=== PATIENT | male | born 1975 | race Caucasian/White ===

== ENCOUNTER 2023-06-04 16:47 | Emergency (ER) | payer OTHER, SELFPAY ==
--- NOTE | 2023-06-04 17:33 | ER ---
Nurse's Notes [facility] Name: Dedrick Gutierrez Jr Age: 48 yrs Sex: Male : 1975 Arrival Date: 06/04/2023 Time: 16:47 Bed 14 Private MD: Diagnosis: Elevated blood-pressure reading, without diagnosis of hypertension Presentation: 06/04 17:00 Chief complaint: High BP reading at [facility] today. Denies CP/SOB/GRIFFIN. Coronavirus screen: At this time, the client does not indicate any symptoms associated with coronavirus-19. Ebola Screen: No symptoms or risks identified at this time. Initial Sepsis Screen: Does the patient meet any 2 criteria? No. Patient's initial sepsis screen is negative. Does the patient have a suspected source of infection? No. Patient's initial sepsis screen is negative. Risk Assessment: Do you want to hurt yourself or someone else? Patient reports no desire to harm self or others. Onset of symptoms was June 04, 2023. 17:00 Method Of Arrival: Ambulatory 17:00 Acuity: DEX 3 hb Historical: - Allergies: 17:01 No Known Allergies; hb - Home Meds: 17:01 None [Active]; hb - PMHx: 17:01 Kidney Stones; hb - PSHx: 17:01 None; hb - Immunization history:: Adult Immunizations up to date. - Social history:: Smoking status: Patient reports the use of cigarette tobacco products, smokes one-half pack cigarettes per day. Screenin:59 [facility] ED Fall Risk Assessment (Adult) History of falling in the last 3 months, kc6 including since admission No falls in past 3 months (0 pts) Confusion or Disorientation No (0 pts) Intoxicated or Sedated No (0 pts) Impaired Gait No (0 pts) Mobility Assist Device Used No (0 pt) Altered Elimination No (0 pt) Score/Fall Risk Level 0 - 2 = Low Risk Oriented to surroundings, Maintained a safe environment, Educated pt \T\ family on fall prevention, incl call for assistance when getting out of bed, Assessed \T\ reinforced patient's understanding of fall precautions, Hourly rounding (assess needs \T\ fall precautionary measures) done. Abuse screen: Denies threats or abuse. Denies injuries from another. Nutritional screening: No deficits noted. Tuberculosis screening: No symptoms or risk factors identified. Assessment: 17:04 General: Appears in no apparent distress. comfortable, Behavior is calm, cooperative, kc6 appropriate for age. Pain: Denies pain. Neuro: Tobin Agitation-Sedation Scale (RASS): 0 - Alert and Calm Level of Consciousness is awake, alert, obeys commands, Oriented to person, place, time, situation, Appropriate for age. Cardiovascular: Denies chest pain, shortness of breath, Capillary refill < 3 seconds. Respiratory: Airway is patent Trachea midline Respiratory effort is even, unlabored, Respiratory pattern is regular, symmetrical. GI: No signs and/or symptoms were reported involving the gastrointestinal system. : No signs and/or symptoms were reported regarding the genitourinary system. EENT: No signs and/or symptoms were reported regarding the EENT system. Derm: No signs and/or symptoms reported regarding the dermatologic system. Skin is intact, is healthy with good turgor, Skin is pink, warm \T\ dry. Musculoskeletal: No signs and/or symptoms reported regarding the musculoskeletal system. Circulation, motion, and sensation intact. Capillary refill < 3 seconds, Range of motion: intact in all extremities. 18:00 Reassessment: Patient appears in no apparent distress at this time. No changes from kc6 previously documented assessment. Patient and/or family updated on plan of care and expected duration. Pain level reassessed. Patient is alert, oriented x 3, equal unlabored respirations, skin warm/dry/pink. Vital Signs: 17:00 BP 178 / 10; Pulse 88; Resp 16; Temp 98.2(O); Pulse Ox 100% on R/A; Weight 99.79 kg; hb Height 5 ft. 11 in. ; Pain 0/10; 17:07 BP 152 / 96; Pulse 85; Resp 17 S; Pulse Ox 97% on R/A; Pain 0/10; kc6 18:01 BP 150 / 95; Pulse 75; Resp 17 S; Pulse Ox 93% on R/A; Pain 0/10; kc6 17:00 Body Mass Index 30.68 (99.79 kg, 180.34 cm) hb 17:00 Pain Scale: Adult hb 17:07 Pain Scale: Adult kc6 18:01 Pain Scale: Adult kc6 ED Course: 16:50 Patient arrived in ED. ts1 16:55 Jeferson Estrada PA is PHCP. cp 16:55 Jeferson Hemphill MD is Attending Physician. cp 16:59 Britni Reed, RN is Primary Nurse. kc6 16:59 Patient has correct armband on for positive identification. Bed in low position. Call kc6 light in reach. Side rails up X 1. Adult w/ patient. 17:01 Triage completed. hb 17:01 Arm band placed on. hb 18:00 No provider procedures requiring assistance completed. Patient did not have IV access kc6 during this emergency room visit. Administered Medications: No medications were administered Medication: 18:01 VIS not applicable for this client. kc6 Outcome: 17:33 Discharge ordered by MD. cp 18:00 Discharged to home ambulatory, with significant other. kc6 18:00 Condition: improved 18:00 Discharge instructions given to patient, Instructed on discharge instructions, follow up and referral plans. Demonstrated understanding of instructions, follow-up care. 18:01 Patient left the ED. kc6 Signatures: Jeferson Estrada PA PA Alyx Adair RN RN Britni Reed RN RN kc6 Michelle Barroso PAS PAS ts1 Corrections: (The following items were deleted from the chart) 17:08 17:07 BP 152 / 96; kc6 kc6
--- NOTE | 2023-06-04 17:33 | EDPHYS ---
Physician Documentation [facility] Name: Dedrick Gutierrez Jr Age: 48 yrs Sex: Male : 1975 Arrival Date: 06/04/2023 Time: 16:47 Bed 14 Private MD: ED Physician Jeferson Hemphill HPI: 06/04 17:17 This 48 yrs old Male presents to ER via Ambulatory with complaints of High Blood cp Pressure. 17:17 The patient has elevated blood pressure and discovered this at a drugstore. Onset: The cp symptoms/episode began/occurred gradually. Associated signs and symptoms: Pertinent negatives: chest pain, dizziness, headache, lightheadedness, vomiting, weakness. Severity of symptoms: At its worst the blood pressure was 170 mm Hg, in the emergency department the blood pressure is improved, 152 mm Hg. 17:17 Patient denies history of HTN. cp Historical: - Allergies: 17:01 No Known Allergies; hb - Home Meds: 17:01 None [Active]; hb - PMHx: 17:01 Kidney Stones; hb - PSHx: 17:01 None; hb - Immunization history:: Adult Immunizations up to date. - Social history:: Smoking status: Patient reports the use of cigarette tobacco products, smokes one-half pack cigarettes per day. ROS: 17:19 Constitutional: Negative for body aches, chills, fever, poor PO intake. cp 17:19 Cardiovascular: Negative for chest pain, edema, palpitations. 17:19 Respiratory: Negative for cough, shortness of breath, wheezing. 17:19 Eyes: Negative for injury, pain, redness, and discharge. cp 17:19 ENT: Negative for drainage from ear(s), ear pain, sore throat, difficulty swallowing, difficulty handling secretions. 17:19 Abdomen/GI: Negative for abdominal pain, nausea, vomiting, and diarrhea. 17:19 Neuro: Negative for altered mental status, dizziness, headache, weakness. 17:19 All other systems are negative. cp Exam: 17:20 Constitutional: The patient appears in no acute distress, alert, awake, cp non-diaphoretic, non-toxic, well developed, well nourished. 17:20 Head/Face: Normocephalic, atraumatic. cp 17:20 Eyes: Periorbital structures: appear normal, Conjunctiva: normal, no exudate, no injection, Sclera: no appreciated abnormality, Lids and lashes: appear normal, bilaterally. 17:20 ENT: External ear(s): are unremarkable, Nose: is normal, Mouth: Lips: moist, Oral mucosa: pink and intact, moist, Posterior pharynx: is normal, airway is patent, no erythema, no exudate. 17:20 Chest/axilla: Inspection: normal. 17:20 Cardiovascular: Rate: normal, Rhythm: regular, Edema: is not appreciated, JVD: is not appreciated. 17:20 Respiratory: the patient does not display signs of respiratory distress, Respirations: normal, no use of accessory muscles, no retractions, labored breathing, is not present, Breath sounds: are clear throughout, no decreased breath sounds, no stridor, no wheezing. 17:20 Abdomen/GI: Exam negative for discomfort, distension, guarding, Inspection: abdomen appears normal. 17:20 Back: pain, is absent, ROM is normal. 17:20 Neuro: Orientation: to person, place \T\ time. Mentation: is normal, Motor: moves all fours, strength is normal. 17:35 ECG was reviewed by the Attending Physician. cp Vital Signs: 17:00 BP 178 / 10; Pulse 88; Resp 16; Temp 98.2(O); Pulse Ox 100% on R/A; Weight 99.79 kg; hb Height 5 ft. 11 in. ; Pain 0/10; 17:07 BP 152 / 96; Pulse 85; Resp 17 S; Pulse Ox 97% on R/A; Pain 0/10; kc6 18:01 BP 150 / 95; Pulse 75; Resp 17 S; Pulse Ox 93% on R/A; Pain 0/10; kc6 17:00 Body Mass Index 30.68 (99.79 kg, 180.34 cm) hb 17:00 Pain Scale: Adult hb 17:07 Pain Scale: Adult kc6 18:01 Pain Scale: Adult kc6 MDM: 16:58 Patient medically screened. cp 17:20 Differential diagnosis: hypertensive crisis, Malignant HTN, CVA, intracerebral cp hemorrhage, acute NH. 17:33 Data reviewed: vital signs, nurses notes, EKG. cp 17:33 Consideration of Admission/Observation Escalation of care including cp admission/observation considered. Counseling: I had a detailed discussion with the patient and/or guardian regarding: the historical points, exam findings, and any diagnostic results supporting the discharge/admit diagnosis, the presence of at least one elevated blood pressure reading (>120/80) during this emergency department visit, the need for outpatient follow up, for definitive care, a family practitioner, to return to the emergency department if symptoms worsen or persist or if there are any questions or concerns that arise at home. 06/04 17:17 Order name: EKG; Complete Time: 17:18 cp 06/04 17:17 Order name: EKG - Nurse/Tech; Complete Time: 17:29 cp EC:35 Rate is 79 beats/min. Rhythm is regular. RI interval is normal. QRS interval is cp prolonged at 102 msec. QT interval is normal. T waves are Inverted in lead aVR. Interpreted by me. Reviewed by me. Administered Medications: No medications were administered Disposition Summary: 06/04/23 17:33 Discharge Ordered Location: Home cp Problem: new cp Symptoms: have improved cp Condition: Stable cp Diagnosis - Elevated blood-pressure reading, without diagnosis of hypertension cp Followup: cp - With: Private Physician - When: 2 - 3 days - Reason: Recheck today's complaints Discharge Instructions: - Discharge Summary Sheet cp - How to Take Your Blood Pressure, [id number] cp - Aspirin and Your Heart cp - DASH Eating Plan cp - Form - Blood Pressure Record Sheet cp Forms: - Medication Reconciliation Form cp - Thank You Letter cp - Antibiotic Education cp - Prescription Opioid Use cp - [email or web address] cp Signatures: Jeferson Estrada PA PA cp Alyx Adair RN RN
[2023-06-04 18:07] VITALS: TEMP 98.2
[2023-06-04 18:10] VITALS: BP 150/95; O2SAT 93
--- NOTE | 2023-06-06 17:15 | EKG ---
Test Date: 2023-06-04 Test Time: 17:28:09 [employer]: ERNESTO MEASUREMENT RESULTS: Intervals: Rate: 79 OK: 172 QRSD: 102 QT: 372 QTc: 426 [place]: P: 44 OK: 172 QRS: -6 T: 52 INTERPRETIVE STATEMENTS: Normal sinus rhythm Normal ECG No previous ECG available for comparison Electronically Signed On 06-06-23 17:13:02 CDT by Samuel Guevara
== END 2023-06-04 18:01 | disposition home or self-care (01) ==
LOC: ER 16:47
DX: R03.0 Elevated blood-pressure reading, without diagnosis of hypertension (principal); F17.210 Nicotine dependence, cigarettes, uncomplicated
CPT/HCPCS: 93005; 99283